=== PATIENT | female | born 1960 | race Caucasian/White ===

== ENCOUNTER 2017-06-20 14:45 | Observation (INO) | payer OTHER ==
[~2017-06-20] VITALS: Ht 157.5 cm; Wt 81.6 kg
[~2017-06-20 14:45] MED LIST: BEN50 PO; GABA-560 PO; LANTUS SUBQ; LORA-478 PO; ONDA4ODT2 PO; PROM25TA85 PO; QUET400T PO
[2017-06-20 14:49] VITALS: BP 127/72
[2017-06-20] MEDS ORDERED: NACL 0.9% 1,000 ML IV SCH (14:54)
--- NOTE | 2017-06-20 15:00 | NUR ---
ASSUMED PATIENT CARE, CONCUR WITH TRIAGE ASSESSMENT. PLACED IN ER 10, SAFETY PRECAUTIONS ENFORCED. SEEN AND EVALUATED BY ELSA RUIZ COMPLETED.
[2017-06-20 15:21] LABS: BASOPHILS # (AUTO) 0.3 K/uL (0.00-0.22); HEMATOCRIT 40.8 % (36-48); HEMOGLOBIN 13.7 g/dL (12.0-16.0); MEAN CORPUSCULAR HEMOGLOBIN 31 pg (27-31); MEAN CORPUSCULAR HGB CONC 34 g/dL (33-37); MEAN CORPUSCULAR VOLUME 92 fL (80-94); MONOCYTES # (AUTO) 0.8 K/uL (0.8-1.0); PLATELET COUNT (AUTO) 193 K/uL (140-450); RED BLOOD CELL COUNT(AUTO) 4.44 MIL/uL (4.20-5.40); RED CELL DISTRIBUTION WIDTH 12.1 % (11.6-13.7); WHITE BLOOD COUNT (AUTO) 6.1 K/uL (4.8-10.8)
[2017-06-20] MEDS ORDERED: TIZA4CAP PO (15:22)
[2017-06-20] MEDS ORDERED: POTA10TE30 PO (15:22)
[2017-06-20] MEDS ORDERED: SYN.05 PO (15:22)
[2017-06-20] MEDS ORDERED: DEPER500 PO (15:22)
[2017-06-20] MEDS ORDERED: PRE.625 PO (15:22)
[2017-06-20] MEDS ORDERED: HYDR2TAB6 PO (15:22)
[2017-06-20] MEDS ORDERED: ELA25 PO (15:22)
[2017-06-20] MEDS ORDERED: AMLO10TA PO (15:22)
[2017-06-20] MEDS ORDERED: ZOLP5TAB1 PO (15:22)
[2017-06-20 15:46] LABS: ANION GAP 15.3 (8-16); ASPARTATE AMINOTRANSFERASE 35 U/L (15-37); CARBON DIOXIDE 27.4 mmol/L (21-32); CHLORIDE 97 mmol/L (98-107); CREATININE 1.3 mg/dL (0.6-1.3); GFR ARICAN-AMERICAN 54 mL/min (>90); GLUCOSE 110 mg/dL (74-106); SODIUM SERUM 137 mmol/L (136-145); TOTAL BILIRUBIN 0.6 mg/dL (0.0-1.0); UREA NITROGEN, BLOOD 13 mg/dL (7-18)
[2017-06-20 16:04] LABS: POTASSIUM 2.7 mmol/L (3.5-5.1)
[2017-06-20 16:05] LABS: AMYLASE 33 U/L (25-115); LIPASE 105 U/L (73-393); SALICYLATE < 2.8 mg/dL (2.8-20.0)
[2017-06-20 16:06] LABS: ACETAMINOPHEN < 0.5 ug/ml (10-30)
[2017-06-20] MEDS ORDERED: KCL 20 MEQ/WATER INJ PREMIX 200 ML IV ONE (16:10)
--- NOTE | 2017-06-20 16:10 | NUR ---
FAMILY AT BEDSIDE, COORDINATED PATIENT CARE WITH THEM. DIAGOSTIC TESTING INITIATED, PATIENT IS LETHARGIC BUT ROUSABLE, VSWNL.
[2017-06-20 16:46] LABS: MAGNESIUM 1.6 mg/dL (1.8-2.4); THYROID STIMULATING HORMONE 1.18 uIU/mL (0.34-3.74)
[2017-06-20 17:08] LABS: APPEARANCE,URINE CLEAR (CLEAR); BILIRUBIN,URINE NEGATIVE (NEGATIVE); BLOOD, URINE NEGATIVE (NEGATIVE); COLOR,URINE YELLOW (YELLOW); LEUKOCYTE ESTERASE ,URINE NEGATIVE (NEGATIVE); NITRITE, URINE NEGATIVE (NEGATIVE); UGLUCOSE NEGATIVE (NEGATIVE)
[2017-06-20 17:14] LABS: BARBITURATE, URINE NEG. ng/ml (NEG <=200); BENZODIAZEPINE, URINE NEG. ng/mL (NEG <=200); CANNABINOID, URINE NEG. ng/mL (NEG <=50); COCAINE, URINE NEG. ng/mL (NEG <=300); OPIATE, URINE POS. ng/mL (NEG <=2000); PHENCYCLIDINE SCREEN,URINE NEG. ng/mL (NEG <=25)
[2017-06-20] MEDS ORDERED: ONDANSETRON 4 MG/2 ML VIAL IVP PRN (18:05)
[2017-06-20] MEDS ORDERED: INSULIN LISPRO SLIDING SCALE 100 UNITS/ML VIAL SUBQ PRN (18:05)
--- NOTE | 2017-06-20 18:09 | NUR ---
K-RIDER COMPLETED, NO ADR NOTED. AWAITING DISPO AND MEDICAL DECISION MAKING.
[2017-06-20] MEDS ORDERED: MAG SULF 2000 MG/WATER PREMIX 50 ML IV ONE (18:10)
--- NOTE | 2017-06-20 18:31 | NUR ---
DISPO AND MEDICAL DECISION MAKING, INPATIENT ADMISSION FOR FURTHER MANAGEMENT AND CARE. TRANSPORTED TO TELE FLOOR VIA GURNEY.
--- NOTE | 2017-06-20 18:45 | NUR ---
RECEIVED PT ON FLOOR VIA [employer], REPORT WAS GIVEN TO ME AT BEDSIDE, PT IS A/OX3-4, PT AMBULATES WITH ASSIST, PT IS ON O2 2L NC, HAS IV THE RIGHT HAND, PATENT, INTACT, FLUSHING WELL, SKIN IS INTACT, NO S/S OF RESPIRATORY DISTRESS OR DISCOMFORT NOTED, ORIENTED PT TO ROOM, DISCUSSED PLAN OF CARE WITH PT, PT VERBALIZED UNDERSTANDING, SAFETY/FALL/SEIZURE PRECAUTIONS ARE IN PLACE, CALL LIGHT IS WITHIN REACH, WILL CONTINUE TO MONITOR.
--- NOTE | 2017-06-20 19:10 | NUR ---
ENDORSED PT TO OBJECT ORIENTED DEVELOPER NURSE FOR CONTINUITY OF CARE, PT STABLE AT THIS TIME.
--- NOTE | 2017-06-20 19:11 | NUR ---
RECEIVED BEDSIDE REPORT FROM DAY SHIFT NURSE TEJINDER RN, PT STABLE, NO DISTRESS NOTED, AAO X4, IV TO R HAND 20G SL, PATENT, SKIN INTACT, SKIN INTACT, CALL LIGHT WITHIN REACH, INITIAL ASSESSMENT DONE, ALL SAFETY PRECAUTION MET, WILL CONTINUE TO MONITOR.
[2017-06-20 19:30] VITALS: BP 136/78
[2017-06-20] MEDS: NACL 0.9% 1,000 ML IV SCH (20:00)
--- NOTE | 2017-06-20 20:00 | NUR ---
NEW BAG OF IVF STARTED @ 100ML/HR PER MD ORDER, IV TO THE R HAND 20G INFUSING WELL, PT STABLE, NO DISTRESS NOTED, CALL LIGHT WITHIN REACH. WILL CONTINUE TO MONITOR.
--- NOTE | 2017-06-20 20:33 | NUR ---
PT REPORTED HAVING PAIN OF 9.5/10 ON THE BACK, PT AAOX4, NO DISTRESS NOTED, NOTIFIED DR. ELLEN DR ORDERED 0.5MG DILAUDID PRN PAIN, TO CONTINUE WITH ORDER, WILL MEDICATE WHEN MEDICATION IS AVAILABLE.
[2017-06-20] MEDS: HYDROmorphone PFS 2 MG/ML SYR IVP PRN (21:24)
[2017-06-20] MEDS: QUEtiapine FUMARATE 100 MG TAB PO SCH (21:24)
--- NOTE | 2017-06-20 21:24 | NUR ---
DUE MEDICATION GIVEN, PT C/O OF PAIN 03/25, MEDICATED PER MD ORDER, PT TOLERATED WELL, CALL LIGHT WITHIN REACH, WILL CONTINUE TO MONITOR.
[2017-06-21] VITALS: BP 117/79
--- NOTE | 2017-06-21 00:02 | NUR ---
PT SLEEPING, NO DISTRESS NOTED, CALL LIGHT WITHIN REACH, WILL CONTINUE TO MONITOR.
[2017-06-21] MEDS: HYDROmorphone PFS 2 MG/ML SYR IVP PRN ×2 (03:34→09:55)
[2017-06-21 04:00] VITALS: BP 113/76
[2017-06-21] MEDS ORDERED: LORazepam 2 MG/ML VIAL IM/IVP PRN (04:25)
--- NOTE | 2017-06-21 04:27 | NUR ---
PT REQUESTED ATIVAN, INFORMED DR HUGHES, ORDERED 1MG ATIVAN IV ONE TIME, WILL CONTINUE WITH ORDER.
[2017-06-21] MEDS ORDERED: LORazepam 1 MG TAB PO PRN ×2 (05:00→09:40)
--- NOTE | 2017-06-21 05:00 | NUR ---
IV ATIVAN ORDER WAS CHANGED TO PO, CONFIRMED WITH DR. HUGHES. STATED UNDERSTANDING, WILL PUT IN ORDER AND CONTINUE WITH ORDER.
[2017-06-21] MEDS: NACL 0.9% 1,000 ML IV SCH ×2 (06:08→14:02)
--- NOTE | 2017-06-21 06:08 | NUR ---
IVF INFUSION COMPLETED, NEW IVF BAG STARTED
[2017-06-21 07:11] LABS: HEMATOCRIT 38.3 % (36-48); MEAN CORPUSCULAR HEMOGLOBIN 31 pg (27-31); MEAN CORPUSCULAR HGB CONC 34 g/dL (33-37); MEAN CORPUSCULAR VOLUME 92 fL (80-94); PLATELET COUNT (AUTO) 165 K/uL (140-450); RED BLOOD CELL COUNT(AUTO) 4.15 MIL/uL (4.20-5.40); RED CELL DISTRIBUTION WIDTH 11.9 % (11.6-13.7); WHITE BLOOD COUNT (AUTO) 3.7 K/uL (4.8-10.8)
[2017-06-21 07:14] LABS: ALBUMIN 3.5 g/dL (3.4-5.0); ANION GAP 11.5 (8-16); CARBON DIOXIDE 30.4 mmol/L (21-32); CREATININE 1.1 mg/dL (0.6-1.3); PHOSPHORUS 4.3 mg/dL (2.5-4.9); TOTAL BILIRUBIN 0.3 mg/dL (0.0-1.0)
[2017-06-21 07:15] LABS: POTASSIUM 2.9 mmol/L (3.5-5.1)
--- NOTE | 2017-06-21 07:18 | NUR ---
GAVE BEDSIDE REPORT TO DAY SHIFT NURSE JACQUI LATHAM, PT STABLE, NO DISTRESS NOTED, CALL LIGHT WITHIN REACH.
--- NOTE | 2017-06-21 07:19 | NUR ---
RECEIVED REPORT FROM REWINDER NURSE LEATHA AT BEDSIDE FOR CONTINUITY OF CARE. INTRODUCED SELF AND UPDATED BOARD. PT IN STABLE CONDITION.
[2017-06-21 07:27] LABS: EOSINOPHILS % (MANUAL) 3 % (0-4); LYMPHOCYTES % (MANUAL) 50 % (20-46); MONOCYTES % (MANUAL) 7 % (5-12)
[2017-06-21] MEDS ORDERED: POTASSIUM CHLORIDE 10 MEQ TABER PO SCH ×2 (07:51→09:46)
[2017-06-21 08:00] VITALS: BP 100/59
[2017-06-21] MEDS: QUEtiapine FUMARATE 100 MG TAB PO SCH (08:12)
[2017-06-21] MEDS ORDERED: ENOXAPARIN 30 MG/0.3 ML SYR SUBQ SCH (09:00)
[2017-06-21] MEDS ORDERED: DIVALPROEX 500 MG TABEC PO SCH (09:00)
[2017-06-21] MEDS ORDERED: HYDROmorphone 2 MG TAB PO PRN (09:35)
--- NOTE | 2017-06-21 09:56 | NUR ---
PATIENT HAS BEEN SCREENED AND CATEGORIZED MODERATE NUTRITION RISK. PATIENT WILL BE SEEN WITHIN 3-5 DAYS OF ADMISSION. 06/23/17-06/25/[address]
[2017-06-21 12:00] VITALS: BP 95/56
[2017-06-21] MEDS ORDERED: GABAPENTIN 300 MG CAP PO SCH (13:00)
[2017-06-21 13:55] LABS: MAGNESIUM 1.8 mg/dL (1.8-2.4); POTASSIUM 4.5 mmol/L (3.5-5.1)
--- NOTE | 2017-06-21 15:00 | NUR ---
CM NOTE HOME HEALTH SET UP FOR PHYSICAL THERAPY W/ [facility]. ORDER & PT NOTES FAXED TO [phone], ATTN: BOB #[phone]
--- NOTE | 2017-06-21 16:30 | NUR ---
IV BAG OF NS 1,000ML ENDED. PT D/C'D TO GO HOME WITH [facility] FOR PHYSICAL THERAPY. GAVE D/C FORMS, INSTRUCTIONS, RX, AND LABS. PT VERBALIZED UNDERSTANDING AND SIGNED FORMS. D/C'D IV FROM RIGHT HAND 20G. IV CATHETER TIP INTACT. APPLIED DRESSING AND PRESSURE TO SITE. NO BLEEDING NOTED. REMOVED ID BANDS AND TELE MONITOR. PT CHANGED IN OWN CLOTHES AND LEFT WITH PERSONAL BELONGINGS. BUS PASS GIVEN FOR PT TRANSPORTATION. PT LEFT UNIT IN STABLE CONDITION.
[2017-06-22] MEDS ORDERED: LEVOTHYROXINE 0.05 MG TAB PO SCH (06:30)
[2017-06-22] MEDS ORDERED: DIVALPROEX 500 MG TABER PO SCH (09:00)
[2017-06-22] MEDS ORDERED: amLODIPine 5 MG TAB PO SCH (09:00)
--- NOTE | 2017-06-22 15:43 | NUR ---
Wireless Sales Expert recieved a call from [facility] requesting to fax Patient's facesheet at . travelers' aid worker faxed facesheet, recieved a confimation of fax recieved 06/22/17 at about 15:30
== END 2017-06-21 15:00 | disposition home health service (06) ==
LOC: MED 14:45 → MTU 18:13
PROVIDERS: ADMIT Internal Medicine; ATTEND Internal Medicine
DX: R41.82 Altered mental status, unspecified (principal); M54.9 Dorsalgia, unspecified; G89.29 Other chronic pain; F32.9 Major depressive disorder, single episode, unspecified; F41.9 Anxiety disorder, unspecified; E03.9 Hypothyroidism, unspecified; E11.9 Type 2 diabetes mellitus without complications; I10 Essential (primary) hypertension; E87.6 Hypokalemia
CPT/HCPCS: 36415; 70450; 71010; 80053; 80305; 81003; 81025; 82150; 82550; 82553; 83690; 83735; 84100; 84132; 84443; 84484; 85025; 87081; 93005; 96361; 96365; 96366; 96367; 96372; 96375; 96376; 97110; 99285; C1758; G0378; G0480; G0482; J1170; J1650; J1815; J3475; J3480; J7030; Q0092

== ENCOUNTER 2017-07-27 17:00 | Emergency (ER) | payer OTHER ==
[~2017-07-27] VITALS: Ht 160 cm; Wt 90.3 kg
[~2017-07-27 17:00] MED LIST changes: +AMLO10TA PO; -BEN50 PO; +DEPER500 PO; +ELA25 PO; +HYDR2TAB6 PO; +POTA10TE30 PO; +PRE.625 PO; -PROM25TA85 PO; +SYN.05 PO; +TIZA4CAP PO; +ZOLP5TAB1 PO
[2017-07-27 17:36] VITALS: BP 123/88
[2017-07-27] MEDS ORDERED: LORazepam 1 MG TAB PO ONE (17:40)
--- NOTE | 2017-07-27 18:05 | NUR ---
PATIENT BIB FAMILY HERE FOR MED REFILL FOR LORAZEPAM 2MG/TAB BID. PT STS FEELING VERY ANXIOUS, RESTLESS AND CRYING R/T MISSED DOSAGE THIS AM.HX OF CHRONIC BRONCHIAL ASTHMA, PTSD BIPOLAR, DEPRESSION, ANGER, CHRONIC PAIN PAIN. AX CAFFEINE;DENIES N/V/D; SKIN IS PINK/WARM/DRY; AAOX4 WITH EVEN AND STEADY GAIT; LUNGS CLEAR BL; HR EVEN AND REGULAR; PT DENIES ANY FEVER, CP, SOB, OR COUGH AT THIS TIME; PATIENT STATES PAIN OF 10/10 AT THIS TIME;PATIENT POSITIONED FOR COMFORT; HOB ELEVATED; BEDRAILS UP X2; BED DOWN. ER MD MADE AWARE OF PT STATUS.
[2017-07-27 18:12] VITALS: BP 125/89
== END 2017-07-27 18:12 | disposition home or self-care (01) ==
LOC: MED 17:00
DX: Z76.0 Encounter for issue of repeat prescription (principal); F41.9 Anxiety disorder, unspecified; J45.909 Unspecified asthma, uncomplicated; K21.9 Gastro-esophageal reflux disease without esophagitis; I10 Essential (primary) hypertension; E11.9 Type 2 diabetes mellitus without complications; Z88.5 Allergy status to narcotic agent; Z88.6 Allergy status to analgesic agent
CPT/HCPCS: 99283